=== PATIENT | male | born 1995 | race Caucasian/White ===

== ENCOUNTER 2021-06-02 14:52 | Emergency (ER) | payer OTHER, SELFPAY ==
[2021-06-02 16:07] VITALS: BP 128/93; PULSE 101; RESP 18; TEMP 36.9; O2SAT 100; BMI 28.3
--- NOTE | 2021-06-02 17:43 | ED.DENTAL ---
HPI - Dental/Oral General Chief complaint: Dental/Oral Stated complaint: dental issues facial swelling Time Seen by Provider: 06/02/21 17:43 Source: patient Mode of arrival: ambulatory Limitations: no limitations History of Present Illness HPI Narrative: 26-year-old male with a history of poor dental care and ongoing intermittent dental pain presents to the ER with concerns of increased dental pain and new facial swelling that started yesterday. He reports going to [facility] 2 weeks ago. They gave him a list of everything that needs to be done, mostly several extractions that are required. He has been taking acetaminophen and ibuprofen with intermittent mild relief. He denies any difficulty opening or closing his jaw. The pain is worse when he tries to eat. He has no trouble swallowing. No fever or chills MD Complaint: tooth pain Location: Tooth # (30) Onset (ago): day(s) Duration: constant Severity: moderate Severity scale (1-10): 7 Relieving factors: NSAIDs Exacerbating factors: chewing Context: history of dental caries and poor dental care Associated symptoms: gum swelling Treatment prior to arrival: none Related Data Previous Rx's Medication Instructions Recorded chlorhexidine gluconate 0.12 % 15 ml BUCCAL BID #118 ml 06/02/21 mouthwash ibuprofen 600 mg tablet 600 mg PO Q8H PRN #20 tab 06/02/21 penicillin V potassium 500 mg 500 mg PO TID 7 Days #21 tab 06/02/21 tablet Allergies Allergy/AdvReac Type Severity Reaction Status Date / Time Sulfa (Sulfonamide Allergy Unknown Verified 06/02/21 16:06 Antibiotics) Review of Systems Constitutional: Constitutional: Denies chills, Denies fever(s) and Reports headache(s) Eyes: Eyes: Reports no additional eye complaints ENT: Reports Normal hearing present, Denies bleeding gums, Reports dental pain, Denies dysphagia, Denies dry mouth, Denies otalgia, Reports facial pain, Reports headache(s), Denies lip swelling, Reports mouth pain, Denies neck pain, Denies sore throat, Denies throat swelling and Denies tongue swelling Cardiovascular: Cardiovascular: Denies chest pain Respiratory: Respiratory: Denies cough Gastrointestinal: Gastrointestinal: Denies dysphagia Musculoskeletal: Musculoskeletal: Denies neck pain Neurologic: Reports Normal hearing present and Reports headache(s) Psychiatric: Psychiatric: Reports anxiety Hematologic/Lymphatic: Hematologic/Lymphatic: Denies easy bleeding and Denies easy bruising Allergic/Immunologic: Allergic/Immunologic: Denies lip swelling, Denies throat swelling and Denies tongue swelling [facility] Past Medical History Attestation statement: The following information was validated with the patient. Medical History (Updated 06/02/21 @ 17:58 by DEBBI Cage) Gender identity disorder Social History Social History Advance Directives: No Advance Directives Information Provided: No Physical Exam Vital Signs: Vital Signs: Last Vital Signs Temp 98.5 F 06/02/21 16:07 Pulse 101 H 06/02/21 16:07 Resp 18 06/02/21 16:07 BP 128/93 H 06/02/21 16:07 Pulse Ox 100 06/02/21 16:07 Body Mass Index 28.3 Const: General: cooperative, comfortable and no acute distress Nutritional Appearance: average body habitus Orientation/consciousness: patient oriented x3 Limitations: no limitations HENMT: Head: Yes normal to inspection Ears: hearing grossly normal bilaterally and external ears normal General nose exam: Normal external nose present Face and sinus: Yes Facial tenderness on exam of face and sinuses (Right lower mandible) Mouth: Normal oral and palatal mucosa present, lip normal, tongue normal and moist mucous membranes Teeth and gingiva: abnormal tooth and associated gingiva lower right second molar tender and with associated gingival edema, caries, poor dentition and other (Or top front teeth numbers 7 through 11 are blackened and chipped. ) Eyes: General: appearance normal, both eyes and all related structures Neck: Neck: Yes normal visual inspection, Yes no lymphadenopathy and No anterior neck swelling Chest: Chest palpation & inspection: normal inspection of the chest Resp: Effort & Inspection: normal respiratory effort and able to speak in complete sentences GI: Inspection: Yes normal to inspection Skin: General skin exam: no rashes or lesions noted Neuro: General: patient oriented x3 Cranial nerves: Yes CN's II-XII intact bilaterally and Yes Normal hearing present Extrem: General: Yes normal to inspection Psych: Appearance: disheveled Mental Status: mental status grossly normal Speech and movement: Normal speech and movement present Course Course Course Narrative: 26-year-old male with a history of very poor dentition, multiple caries, and need for multiple teeth extractions coming in with worsening right lower dental pain with associated mild facial swelling since yesterday. No palpable interval fluctuance on exam, no drainable abscess at this time. He is nontoxic-appearing and able to tolerate food and drink by mouth. Will start on oral antibiotics and have him follow-up with dentist. He would like other dental referrals beside [facility]. He is encouraged to continue NSAIDs and acetaminophen around the clock in addition to oral antibiotics. Also encouraged [id number] Orajel for local symptomatic relief. Discharge Plan Discharge Clinical Impression: Toothache, Dental caries Patient Disposition: Home, Self-Care Instructions: Toothache (ED) Additional Instructions: Take the prescribed antibiotic as directed. Use the prescribed antiseptic mouthwash as directed. Avoid food that is very hot or very cold. Recommend taking 975 mg of acetaminophen every 6 hours. Take the prescribed ibuprofen 600 mg every 6 hours as well. Alternate this with the acetaminophen. Use ice to your face as needed for pain and swelling. Recommend [id number] Orajel as needed for pain. Follow-up with [facility]. Prescriptions: New penicillin V potassium 500 mg tablet 500 mg PO TID 7 Days Qty: 21 RF: 0 chlorhexidine gluconate 0.12 % mouthwash 15 ml buccal BID Qty: 118 RF: 0 ibuprofen 600 mg tablet 600 mg PO Q8H PRN (Reason: pain) Qty: 20 RF: 0
== END 2021-06-02 18:15 | disposition home or self-care (01) ==
PROVIDERS: Emergency Provider Emergency Medicine Emergency Medical Services
DX: K02.9 Dental caries, unspecified (principal); K08.89 Other specified disorders of teeth and supporting structures; Z79.899 Other long term (current) drug therapy
CPT/HCPCS: 99283